=== PATIENT | male | born 1965 ===

== ENCOUNTER → 2020-11-15 | Day surgery (SDC) | payer BC, OTHER ==
[~2020-11-15] MED LIST: 24 HOUR ALLERG9.9 ML; ALFUZOSIN HCL E10 MG PO; ASPIRIN EC81 MG PO; BYDUREON SC; COLESTID1 GM PO; COLESTIPOL HCL1 GM PO; DEX4 GLUCOSE4 GM PO; FAMOTIDINE20 MG PO; FLOMAX 0.4 MG0.4 MG PO; FLUDROCORTISON0.1 MG PO; FLUOXETINE HCL40 MG PO; HUMALOG 10100 UNITS/ SC; HUMULIN N100 UNIT/2 SC; HUMULIN R500 UNIT/1 SC; LIPITOR40 MG PO; LOPERAMIDE2 M1 PO; MELATONIN3 MG PO; MELATONIN5 M2 PO; NAPROXEN500 MG PO; NIFEDIPINE10 MG PO; OLANZAPINE5 MG PO; SINGULAIR10 MG PO; SPIRIVA HANDIH18 MCG INH; SPIRIVA18 MCG INH; ST. JOSEPH ASPI81 M1 PO; TENORMIN25 MG PO; TESSALON PERLE100 MG PO; ZYRTEC10 MG PO
== END | disposition home or self-care (01) ==
LOC: OR 11:28
DX: R39.16 Straining to void (principal); N20.0 Calculus of kidney; J44.9 Chronic obstructive pulmonary disease, unspecified; E11.9 Type 2 diabetes mellitus without complications; I10 Essential (primary) hypertension; E78.00 Pure hypercholesterolemia, unspecified; K21.9 Gastro-esophageal reflux disease without esophagitis; F41.9 Anxiety disorder, unspecified; F32.9 Major depressive disorder, single episode, unspecified; K58.9 Irritable bowel syndrome, unspecified; G47.30 Sleep apnea, unspecified; Z88.0 Allergy status to penicillin; Z88.8 Allergy status to other drugs, medicaments and biological substances; Z79.82 Long term (current) use of aspirin; Z79.4 Long term (current) use of insulin; Z79.899 Other long term (current) drug therapy
CPT/HCPCS: 82962; J7040

== ENCOUNTER 2021-01-18 23:32 | Observation (INO) | payer BC, OTHER ==
[~2021-01-18] VITALS: Ht 193 cm; Wt 145.8 kg
[~2021-01-18 23:32] MED LIST changes: -ALFUZOSIN HCL E10 MG PO; -ASPIRIN EC81 MG PO; -COLESTIPOL HCL1 GM PO; -DEX4 GLUCOSE4 GM PO; -FLUDROCORTISON0.1 MG PO; -HUMALOG 10100 UNITS/ SC; -HUMULIN R500 UNIT/1 SC; -MELATONIN5 M2 PO; -SPIRIVA HANDIH18 MCG INH; -TESSALON PERLE100 MG PO
[2021-01-19] MEDS ORDERED: MELATONIN5 M2 PO (05:47)
[2021-01-19] MEDS ORDERED: COLESTID1 GM PO (05:48)
[2021-01-19] MEDS ORDERED: ALFUZOSIN HCL E10 MG PO (05:49)
[2021-01-19] MEDS ORDERED: SPIRIVA HANDIH18 MCG INH (05:50)
[2021-01-19] MEDS ORDERED: TESSALON PERLE100 MG PO (05:50)
[2021-01-19] MEDS ORDERED: COLESTIPOL HCL1 GM PO (07:08)
[2021-01-19 09:08] LABS: BUN/CREATININE RATIO 13 (0-10)
[2021-01-19 09:10] LABS: HEMOGLOBIN 14.7 gm/dl (14.0-17.5); RED BLOOD COUNT 4.56 M/UL (4.20-5.50); WHITE BLOOD COUNT 7.6 K/UL (4.5-11.0)
[2021-01-19] MEDS ORDERED: FLUDROCORTISON0.1 MG PO (12:32)
[2021-01-20 05:40] LABS: RED BLOOD COUNT 4.46 M/UL (4.20-5.50); WHITE BLOOD COUNT 6.7 K/UL (4.5-11.0)
[2021-01-20] MEDS ORDERED: HUMULIN R500 UNIT/1 SC ×2 (05:51→11:58)
[2021-01-20 06:04] LABS: BUN/CREATININE RATIO 13 (0-10)
[2021-01-20] MEDS ORDERED: ASPIRIN EC81 MG PO (10:29)
[2021-01-20] MEDS ORDERED: HUMALOG 10100 UNITS/ SC (11:17)
[2021-01-20] MEDS ORDERED: DEX4 GLUCOSE4 GM PO ×2 (12:09→12:26)
== END 2021-01-20 17:00 | disposition home or self-care (01) ==
LOC: PROG CARE 23:32 → MED SURG 4 01-19 18:01
PROVIDERS: ADMIT Internal Medicine
DX: R07.89 Other chest pain (principal); R53.1 Weakness; R20.2 Paresthesia of skin; R00.2 Palpitations; I11.9 Hypertensive heart disease without heart failure; E11.65 Type 2 diabetes mellitus with hyperglycemia; E11.40 Type 2 diabetes mellitus with diabetic neuropathy, unspecified; E27.40 Unspecified adrenocortical insufficiency; E78.5 Hyperlipidemia, unspecified; I34.0 Nonrheumatic mitral (valve) insufficiency; I25.10 Atherosclerotic heart disease of native coronary artery without angina pectoris; J45.909 Unspecified asthma, uncomplicated; F32.9 Major depressive disorder, single episode, unspecified; F41.9 Anxiety disorder, unspecified; M48.02 Spinal stenosis, cervical region; N40.0 Benign prostatic hyperplasia without lower urinary tract symptoms; K21.9 Gastro-esophageal reflux disease without esophagitis; E66.9 Obesity, unspecified; Z68.39 Body mass index [BMI] 39.0-39.9, adult; Z79.4 Long term (current) use of insulin; Z98.1 Arthrodesis status; Z79.899 Other long term (current) drug therapy; Z79.82 Long term (current) use of aspirin; Z88.0 Allergy status to penicillin; Z88.8 Allergy status to other drugs, medicaments and biological substances
CPT/HCPCS: ECHO; 36415; 70551; 78452; 80053; 80061; 82550; 82553; 82607; 82746; 82962; 83036; 84439; 84443; 84484; 84550; 85027; 93005; 93017; 93306; 94664; 94760; 96372; 96374; 97161; A9502; G0378; G0379; J1650; J2250; J2405; J2785

== ENCOUNTER → 2022-02-14 | Outpatient (CLI) | payer BC ==
[~2022-02-14] MED LIST changes: +ALFUZOSIN HCL E10 MG PO; +ASPIRIN EC81 MG PO; +COLESTIPOL HCL1 GM PO; +DEX4 GLUCOSE4 GM PO; +FLUDROCORTISON0.1 MG PO; +HUMALOG 10100 UNITS/ SC; +HUMULIN R500 UNIT/1 SC; +MELATONIN5 M2 PO; +SPIRIVA HANDIH18 MCG INH; +TESSALON PERLE100 MG PO
== END ==
LOC: EXRD 11:10
DX: M47.22 Other spondylosis with radiculopathy, cervical region (principal); M50.10 Cervical disc disorder with radiculopathy, unspecified cervical region
CPT/HCPCS: 72040